=== PATIENT | male | born 1970 | race Caucasian/White ===

== ENCOUNTER 2017-04-30 13:06 | Emergency (ER) | payer BC ==
[~2017-04-30] VITALS: Ht 180.3 cm; Wt 94.1 kg
[2017-04-30 16:57] LABS: EOSINOPHIL (%) 2.7 % (0-5); EOSINOPHIL COUNT 0.4 K/uL (0-0.3); HEMATOCRIT 35.5 % (38.0-50.0); IMMATURE GRANULOCYTE (%) 0.5 % (0.0-0.7); IMMATURE GRANULOCYTE COUNT 0.1 K/uL; INSTRUMENT ABS NEUTROPHIL CT 9.1 K/uL; LYMPHOCYTE COUNT 2.7 K/uL (1.0-2.8); MCH 30.2 PG (29.0-34.0); MCV 91.5 FL (86-99); MEAN PLAT.VOLUME 9.9 uM^3 (9.0-12.4); MONOCYTE (%) 7.5 % (3-12); NEUTROPHIL (%) 68.7 % (45-76); NEUTROPHIL COUNT 9.1 K/uL (1.8-6.4); PLATELET COUNT 285 K/uL (156-360); RBC DIS.WIDTH-CV 13.6 % (11.8-14.6); RBC DIS.WIDTH-SD 44.2 % (39-53); RED BLOOD COUNT 3.88 M/uL (4.00-5.50); WHITE BLOOD COUNT 13.2 K/uL (4.1-10.2)
[2017-04-30 17:05] LABS: CHLORIDE 103 mEq/L (99-109); POTASSIUM 3.6 mEq/L (3.7-5.4); SODIUM 140 mEq/L (136-147)
[2017-04-30 17:07] LABS: GLUCOSE 88 mg/dL (70-99)
[2017-04-30 17:08] LABS: ANION GAP 10 MEQ/L (2-14)
[2017-04-30 17:11] LABS: GFR ESTIMATE (CALCULATED) > 59 mL/min/
[2017-04-30 17:12] LABS: UREA NITROGEN (BUN) 16 mg/dL (9-23)
[2017-04-30 20:55] VITALS: BP 133/79
== END 2017-04-30 20:55 | disposition short-term general hospital (02) ==
LOC: EME 13:06
PROVIDERS: Personal Emergency Response Attendant
DX: T81.89XA Other complications of procedures, not elsewhere classified, initial encounter (principal); G82.20 Paraplegia, unspecified; G89.18 Other acute postprocedural pain; Y83.8 Other surgical procedures as the cause of abnormal reaction of the patient, or of later complication, without mention of misadventure at the time of the procedure; K21.9 Gastro-esophageal reflux disease without esophagitis
CPT/HCPCS: 80048; 85025; 99281; 99284